=== PATIENT | female | born 1985 ===

== ENCOUNTER 2017-03-31 17:22 | Emergency (ER) | payer OTHER | END 2017-03-31 19:45 | disposition home or self-care (01) | LOC: H.EROB2 17:22 → H.EROB 17:44 → H.EROB2 19:45 | DX: O47.1 False labor at or after 37 completed weeks of gestation (principal); Z3A.38 38 weeks gestation of pregnancy ==

== ENCOUNTER 2017-04-01 01:59 | Inpatient (IN) | payer OTHER ==
[2017-04-01] MEDS ORDERED: Lactated Ringer's 1,000 ML IV SCH (02:40)
[2017-04-01] MEDS: Lactated Ringer's 1,000 ML IV SCH ×2 (03:31→04:30)
[2017-04-01 03:33] VITALS: BMI 35.6
[2017-04-01 03:59] LABS: BASO % 0.2 % (0.0-2.0); EOS % 0.1 % (0.0-4.0); HEMATOCRIT 36.4 % (34.0-47.0); LYMPH % 22.7 % (20.0-40.0); MEAN CELL VOLUME 87.1 fl (81.0-99.0); MEAN CORPUSCULAR HEMOGLOBIN 29.6 pg (27.0-31.0); MEAN PLATELET VOLUME 9.7 fl (7.2-11.7); MONO # 0.5 K/uL (0.0-0.8); MONO % 6.1 % (0.0-10.0); NEUT # 6.3 K/uL (1.8-7.0); NEUT % 70.9 % (50.0-75.0); NRBC % 0.1 % (0.0-0.0); RED CELL DISTRIBUTION WIDTH 14.2 % (11.5-14.5); WHITE BLOOD COUNT 8.9 K/uL (4.8-10.8)
[2017-04-01] MEDS ORDERED: Ampicillin 2 GM in Sodium Chloride 0.9% 100 ML IVPB ONE (04:00)
[2017-04-01] MEDS ORDERED: Fentanyl/Bupivacaine HCl 250 ML EPI ONE (04:21)
[2017-04-01] MEDS ORDERED: Bupivacaine HCl 0.25% PF (10 ml) Inj ONE (04:22)
[2017-04-01] MEDS: AMPicillin 1 GM in Sodium Chloride 0.9% 100 ML IVPB SCH ×2 (07:40→11:54)
[2017-04-01 07:46] VITALS: TEMP 98
--- NOTE | 2017-04-01 09:25 | OBADHP ---
Datetime: 04/01/2017 09:20 Admit Comment, IP Provider: LAte GBS neg but early pos so will start on antibiotics Since pt very un confortable and had fast 1st baby delivery sid admit Extremities - PN: Normal Abdomen - PN: Abnormal Back - PN: Normal Breast - PN: Normal Heart - PN: Normal Thyroid - PN: Normal Neurologic - PN: Normal HEENT - PN: Normal General - PN: Normal Presentation-Admit: ceph FHR - Baseline A Provider: 140 Membranes, Provider: Intact Contraction Comments Provider: 2-4 min Comments, ACOG Physical Exam: abd gravid fundus NT Ext no calf tenderness Gestation - Est Wks by US: 38.0 Pool Provider: Negative IP Hx Assessment: The History has been Reviewed and is Current Vital Signs Provider: Reviewed IP Chief Complaint: Uterine contractions NICHD Variability Prov Fetus A: Moderate 6-25bpm NICHD Decel Fetus A IP Provider: None Dilatation, Provider: 2-3 Effacement, Provider: 90 Station, Provider: -2 Genitourinary Exam: Normal DTRs - PN: Normal EGA AdmitDate IP: 38.5 IP Adm Impression: Term, intrauterine ; Active labor IP Admit Plan: Admit to unit; Initiate labor protocol Datetime: 03/31/2017 18:30 Pelvic Type - PN: Adequate Lungs - PN: Normal NICHD Accel Fetus A IP Provider: [id number] FHR Category Provider Fetus A: Category I
[2017-04-01] MEDS ORDERED: Oxytocin 30 units/LR 500ML 30 U/500 ML BAG IV ONE (11:34)
[2017-04-01] MEDS ORDERED: Oxycodone/Acetaminophen 5/325 mg Tab PO PRN ×2 (15:58→18:17)
--- NOTE | 2017-04-01 15:59 | OBDS ---
DELIVERY PERSONNEL Delivery Doctor: Sofia Canela MD Shopper: Jyoti Melendez RN MATERNAL INFORMATION Delivery Anesthesia: Epidural Medications in Delivery: pitocin Estimated Blood Loss (ml): 250cc Maternal Complications: None Provider Comments: Delivered a living baby boy appears LGA but terrm, criied spontanously, 9/9 , AF clear Placenta delivered complete and intact Episiotomy repaired as above, no complications Uter us contracted well, rectal done no defects. Tolerated procedure well LABOR SUMMARY EDC: 04/10/2017 00:00 No. Babies in Womb: 1 Attempted: No Labor Anesthesia: Epidural LABOR INFORMATION Reason for Induction: Not Applicable Onset of Labor: 04/01/2017 02:00 Complete Dilatation: 04/01/2017 14:10 Oxytocin: Augmentation Group B Beta Strep: Negative (Annotations: History of positive result early in , currently negative ) Antibiotics # of Doses: 3 Antibiotics Time of Last Dose: 1240 Steroids Given: None Reason Steroids Not Administered: Not Applicable MEMBRANES Membranes Rupture Method: Artificial (Annotations: Dr Canela) Rupture of Membranes: 04/01/2017 09:17 Length of Rupture (hrs): 6.25 Amniotic Fluid Color: Clear Amniotic Fluid Amount: Small Amniotic Fluid Odor: Normal STAGES OF LABOR Stage 1 hrs: 12 Stage 1 min: 10 Stage 2 hrs: 1 Stage 2 min: 22 Stage 3 hrs: 0 Stage 3 min: 5 Total Time in Labor hrs: 13 Total Time in Labor min: 37 VAGINAL DELIVERY Episiotomy: Median Laceration Extension: Second Degree Laceration Type: Perineal Laceration Repair: Yes Laceration Repair Note: episiotomy repaired with 2-0 chromic suture interupted and continuos without any complications No vaginal, cervical or perineal tears or laceratioons noted Initial Vag Sponge Count: 5 Final Vag Sponge Count: 5 Initial Vag Sharps Count: 1 Final Vag Sharps Count: 1 Sponge Count Correct: Yes Sharps Count Correct: Yes Count Comment: counts correcct CSECTION DELIVERY Primary Indication: N/A Secondary Indication: N/A CSection Urgency: N/A Labor: N/A CSection Incision: N/A BABY A INFORMATION Delivery Date/Time: 04/01/2017 15:32 Method of Delivery: Vaginal Born in Route : No : N/A Forceps: N/A Vacuum Extraction: N/A Shoulder Dystocia : No SHOULDER DYSTOCIA BABY A Delivery Date/Time: 04/01/2017 15:32 PRESENTATION/POSITION BABY A Presentation: Cephalic Cephalic Presentation: Vertex Breech Presentation: N/A PLACENTA INFORMATION BABY A Placenta Delivery Time : 04/01/2017 15:37 Placenta Method of Delivery: Spontaneous Placenta Status: Delivered SCORES BABY A Heart Rate 1 min: >100 bpm Resp Effort 1 min: Good Cry Reflex Irritability 1 min: Cough or Sneeze or Pulls Away Muscle Tone 1 min: Active Motion Color 1 min: Body [place], Extremities Blue Resuscitation Effort 1 min: N/A SCORE 1 MIN: 9 Heart Rate 5 min: >100 bpm Resp Effort 5 min: Good Cry Reflex Irritability 5 min: Cough or Sneeze or Pulls Away Muscle Tone 5 min: Active Motion Color 5 min: Body [place], Extremities Blue Resuscitation Effort 5 min: N/A SCORE 5 MIN: 9 Resuscitation Effort 10 min: N/A INFANT INFORMATION BABY A Gestational Age at Delivery: 38+5 Gestational Status: Term Outcome : Liveborn Condition : Stable Infant Sex: Male IDENTIFICATION/MEDS BABY A ID Band Number: [id number] ID Band Location: Left Leg; Left Arm WEIGHT/LENGTH BABY A Birthweight (gms): 3950 Weight (lb): 8 Weight (oz): 11 CORD INFORMATION BABY A No. Cord Vessels: 3 Nuchal Cord : N/A Cord Blood Taken: Yes Infant Suction: Mouth ASSESSMENT BABY A Infant Complications: None Physical Findings at Delivery: Within Normal Limits Respirations: Appears Normal Icing Machine Operator/ALS Called : No Infant Care By: Maribel Garcia rn Transferred To: Remains with Mother
[2017-04-02 06:46] LABS: HEMATOCRIT 29.7 % (34.0-47.0); MEAN CELL VOLUME 88.5 fl (81.0-99.0); MEAN CORPUSCULAR HEMOGLOBIN 28.8 pg (27.0-31.0); MEAN CORPUSCULAR HGB CONC 32.6 g/dL (33.0-37.0); RED CELL DISTRIBUTION WIDTH 14.1 % (11.5-14.5); WHITE BLOOD COUNT 13.4 K/uL (4.8-10.8)
[2017-04-02] MEDS: Benzocaine/Menthol SPRAY TOP PRN (09:43)
--- NOTE | 2017-04-02 10:33 | OBPPN ---
Datetime: 04/02/2017 10:29 PP Pain Prov: Within normal limits PP Nausea Prov: Denies PP Flatus Prov: Yes PP BM Prov: No PP Breasts Prov: Normal PP Heart Prov: Normal PP Lungs Prov: Normal PP Abdomen/Uterus Prov: Normal PP Lochia Prov: Normal PP Vulva/Perineum Prov: Normal PP CVA Tenderness Prov: Normal PP Extremities Prov: Normal PP Progress Prov: Normal PP Impression Prov: Normal progression PP Plan Prov: Continue present management PP Progress Note Prov: stable ppd1 continue present care,oob with assistance,may shower IP PP Procedures: None Vital Signs Provider PP: Reviewed; Within Normal Limits
[2017-04-03] MEDS: Benzocaine/Menthol SPRAY TOP PRN (08:27)
--- NOTE | 2017-04-03 10:22 | OBPPN ---
Datetime: 04/03/2017 10:17 PP Pain Prov: Within normal limits PP Pain Prov comment: no SOB, chest pain or leg pain PP Nausea Prov: Denies PP Flatus Prov: Yes PP BM Prov: Yes PP Breasts Prov: Normal PP Lungs Prov: Normal PP Abdomen/Uterus Prov: Abnormal PP Lochia Prov: Normal PP Vulva/Perineum Prov: Abnormal PP CVA Tenderness Prov: Normal PP Extremities Prov: Normal PP C/S Incision Prov: Not Applicable PP Progress Prov: Normal PP Comments Phys Exam Prov: breast not engorged, Nt; abd soft not distended fundus firm below the um b NT; Perineum repaired Ext no calf tenderness or edema. PP Impression Prov: Normal progression PP Plan Prov: Discharge PP Progress Note Prov: D/c home with instructions IP PP Procedures: None Vital Signs Provider PP: Reviewed
--- NOTE | 2017-04-03 10:22 | OBDCSUM ---
Datetime: 04/03/2017 10:20 Discharged to, Provider: Home Follow up at, Provider: Dr Canela Disch Instr Activity: Bedrest; May be up to bathroom; May be up for meals; May Shower Disch Instr Diet: Regular Discharge Instructions, Provider: Routine instructions given Discharge Diagnosis, Provider: Term Delivered Discharge Time: 04/03/2017 10:20 Follow up in weeks, Provider: 4-6 wks Disch Referrals: None Contraception discussed, Prov: Yes Disch Activity Restrictions: No exercising; No lifting; No driving; Minimize walking; Minimize stair -climbing; No sexual activity; Nothing in vagina - [place], tampons, douche Discharge Comment, Provider: continue PNC vit and iron Instructions given Contraception after Delivery: Undecided
[2017-04-03 15:38] VITALS: BP 116/70; PULSE 78; RESP 19; O2SAT 99
== END 2017-04-03 11:25 | disposition home or self-care (01) | DRG 373 ==
LOC: H.EROB2 01:59 → H.L&D 02:40 → H.OB/GYN 20:00
PROVIDERS: ADMIT Specialist; ATTEND Specialist
PROC: 0W8NXZZ Division of Female Perineum, External Approach (ICD-10-PCS; principal; 2017-04-01)
PROC: 10D07Z8 Extraction of Products of Conception, Other, Via Natural or Artificial Opening (ICD-10-PCS; 2017-04-01)
PROC: 4A1HXCZ Monitoring of Products of Conception, Cardiac Rate, External Approach (ICD-10-PCS; 2017-04-01)
DX: O36.63X0 Maternal care for excessive fetal growth, third trimester, not applicable or unspecified (principal); O70.1 Second degree perineal laceration during delivery; Z37.0 Single live birth; Z3A.38 38 weeks gestation of pregnancy

== ENCOUNTER 2017-06-24 06:35 | Day surgery (SDC) | payer OTHER ==
[2017-06-21 16:07] VITALS: BMI 32.0
[2017-06-24 07:14] VITALS: RESP 18
[2017-06-24] MEDS ORDERED: Lactated Ringer's 1,000 ML IV ONE (07:15)
[2017-06-24] MEDS ORDERED: Propofol 10 mg/ml Inj (20 ML) ONE ×2 (07:31→08:27)
[2017-06-24] MEDS ORDERED: Midazolam 2 MG/2 ML VIAL ONE (07:32)
[2017-06-24] MEDS ORDERED: ePHEDrine 50 mg/ml Inj ONE (07:32)
[2017-06-24] MEDS ORDERED: Rocuronium 10 mg/ml (5 ml) ONE (07:32)
[2017-06-24] MEDS ORDERED: Succinylcholine 200 mg/10 ml Inj IV ONE (07:33)
[2017-06-24] MEDS ORDERED: Lidocaine 4% (Laryng-O-Jet) Kit MM ONE (07:33)
[2017-06-24] MEDS ORDERED: Dexamethasone 4 mg/1 ml ONE (07:34)
--- NOTE | 2017-06-24 07:39 | CP.SDSHP ---
Same Day Surgery H & P - History Proposed Procedure: laparoscopic bilateral tubal sterilization - Previous Medical/Surgical History Previous Surgical History: TOP - Allergies Allergies: Allergies No Known Allergies Allergy (Verified 06/24/17 06:54) - Physical Exam Vital Signs: Vital Signs 06/24/17 07:13 Temperature 98 F Pulse Rate 65 Respiratory 18 Rate Blood Pressure 108/64 O2 Sat by Pulse 97 Oximetry Mental Status: Alert & Oriented x3 Neuro: WNL Heart: WNL Lungs: WNL GI: WNL - {Optional Preform as Required} Breast: WNL Abdomen: WNL Integument: WNL SHOP FITTER: WNL - Impression Impression: multiparity and voluntary sterilization - Date & Time Date: 06/24/17 Time: 07:39 Short Stay Discharge - Short Stay Discharge Admitting Diagnosis/Reason for Visit: Z64.1 Z30.2 Disposition: HOME/ ROUTINE Referrals: Shawna Hoffman MD [Primary Care Provider] -
[2017-06-24] MEDS ORDERED: ceFAZolin IV 1 gm in Dextrose 2 GM/100 ML BAG IVPB ONE (08:08)
[2017-06-24] MEDS ORDERED: Neostigmine Methylsulfate 2 MG/2 ML ML IV ONE (08:35)
[2017-06-24] MEDS ORDERED: HYDROmorphone 0.5 mg/0.5 ml ISec IVP PRN (08:55)
[2017-06-24] MEDS: HYDROmorphone 0.5 mg/0.5 ml ISec ONE ×3 (08:55→09:19)
[2017-06-24] MEDS ORDERED: Lactated Ringer's 1,000 ML IV SCH (09:00)
[2017-06-24] MEDS ORDERED: HYDROmorphone 0.5 mg/0.5 ml ISec ONE (09:07)
[2017-06-24] MEDS ORDERED: Oxycodone/Acetaminophen 5/325 mg Tab PO PRN (09:07)
[2017-06-24 12:02] VITALS: BP 112/76; PULSE 75; TEMP 9.6; O2SAT 98
--- NOTE | 2017-06-24 13:42 | CP.SDSHP ---
Same Day Surgery H & P - Allergies Allergies: Allergies No Known Allergies Allergy (Verified 06/24/17 06:54) - Physical Exam Vital Signs: Vital Signs 06/24/17 06/24/17 06/24/17 07:13 08:51 09:05 Temperature 98 F 96.4 F L 96.7 F L Pulse Rate 65 73 76 Respiratory 18 18 18 Rate Blood Pressure 108/64 109/59 L 107/66 O2 Sat by Pulse 97 100 100 Oximetry 06/24/17 06/24/17 06/24/17 09:20 09:35 09:50 Temperature 96.9 F L 97.2 F L Pulse Rate 70 68 72 Respiratory 20 20 20 Rate Blood Pressure 112/66 114/69 115/68 O2 Sat by Pulse 100 98 98 Oximetry 06/24/17 06/24/17 06/24/17 10:20 10:40 10:53 Temperature 97.6 F 97.5 F L Pulse Rate 75 77 70 Respiratory 20 20 18 Rate Blood Pressure 113/82 117/71 115/64 O2 Sat by Pulse 98 97 97 Oximetry 06/24/17 06/24/17 10:56 11:50 Temperature 9.6 F L Pulse Rate 75 Respiratory 18 Rate Blood Pressure 112/76 O2 Sat by Pulse 97 98 Oximetry Short Stay Discharge - Short Stay Discharge Admitting Diagnosis/Reason for Visit: Z64.1 Z30.2 Referrals: Shawna Hoffman MD [Primary Care Provider] - Follow-up: 2 wks in office Additional Instructions (Diet, Activity): pelvic and bed rest Rx for Percocet given. Progress Note/Discharge Note with Instructions: Recovered well and discussed procedure and findings with pt. Will D/C home and folllow up in office Instructions given
--- NOTE | 2017-06-25 23:44 | OP ---
PROCEDURE DATE: 06/24/2017 PREOPERATIVE DIAGNOSIS: Multiparity and voluntary sterilization. POSTOPERATIVE DIAGNOSIS: Multiparity and voluntary sterilization. PROCEDURE PERFORMED: Laparoscopic bilateral tubal sterilization using electrocoagulation. SURGEON: Dirk Canela MD TYPE OF ANESTHESIA: General endotracheal. ANESTHESIA ADMINISTERED BY: Shannon Lara MD ESTIMATED BLOOD LOSS: 75 mL. DRAINS USED: None. REPLACEMENTS USED: None. FINDINGS: 1. Uterus is anteverted, mobile, smooth to palpation. 2. Cervix closed, long, posterior, mobile. No gross lesion to visualization. 3. Both tubes and ovaries appear grossly within normal limits to inspection bilaterally. 4. Bilateral tubal sterilization performed using electrocoagulation without any complication. DESCRIPTION OF PROCEDURE: The patient was taken to the operating room and placed on the operating table in a supine position. Following induction of general endotracheal anesthesia, the patient was then re-placed in a dorsal lithotomy position. Perineal, abdominal, and genital areas were draped and prepped in the usual sterile manner. Following this, we then proceeded to put a sterile catheter into the bladder. Clear urine was then evacuated from the bladder. The patient was then examined under anesthesia with some of the above findings. A heavy-weighted speculum was then placed in the posterior wall of the vagina, thus exposing the cervix. The anterior lip of the cervix was then grasped using a single-tooth tenaculum and retracted superiorly. At this time, the endocervical canal was then dilated using Hanks dilators in an increasing size manner. Following this, a HUMI cannula was then inserted into the endometrial canal in order to manipulate the cervix. The single-tooth tenaculum was then removed, no bleeding noted. Heavy-weighted speculum was removed and attention was then given to the abdomen. At the umbilicus, a Veress needle was then introduced into the abdomen and about 5 liters of carbon dioxide was then introduced into the abdomen, thus creating a pneumoperitoneum. Following this, we then proceeded to remove the Veress needle and a 1-cm incision was then made at the umbilicus. Through this, a 10-mm trocar was then introduced into the abdomen under direct visualization. Through this, a laparoscope was then introduced. Visualization of the area underneath the insertion revealed no signs of trauma or bleeding. At this time, a 5-mm trocar was then introduced suprapubically under direct visualization. Through this, a laparoscopic Kleppinger forceps was then introduced. Visualization of the uterus appeared to be anteverted, smooth, and normal size. Both tubes and ovaries appeared grossly within normal limits to inspection bilaterally, and at this time, using the Kleppinger forceps, the right fallopian tube was followed to its fimbriated end and retracted superiorly and grasped at the ampullary region and away from adjacent structures. Under direct visualization, electrocoagulation was then performed of about 3-cm section of the tube. The same procedure was performed on the contralateral side without any complications. At this time, all operative areas were checked and hemostatically secured. The lumen appeared smooth to visualization. Air was then allowed partially to escape from the abdomen, thus evacuating partially the pneumoperitoneum. All operative areas were checked and hemostatically secured and the 5-mm trocar was then removed under direct visualization. No bleeding noted, and at this time, the 10-mm trocar and laparoscope were then removed after evacuating some more air from the abdomen under direct visualization. A 0-Vicryl suture was then placed at the fascia at the umbilical incision. Both incisions were then closed using a 4-0 Monocryl and Dermabond. The HUMI cannula was then removed, no bleeding noted. The patient tolerated the procedure well. There were no complications. She was transferred to the recovery room in satisfactory condition. Both instrument and needle count were correct x3. Dirk Canela MD
== END 2017-06-24 12:31 | disposition home or self-care (01) ==
LOC: H.OPSURG 06:35
PROVIDERS: ATTEND Specialist
DX: Z30.2 Encounter for sterilization (principal); Z64.1 Problems related to multiparity
CPT/HCPCS: 58670; J0330; J0690; J1100; J1170; J2001; J2250; J2405; J2704; J2710; J3010; J7120

== ENCOUNTER 2018-08-17 16:25 | Emergency (ER) | payer OTHER ==
[2018-08-17 16:25] VITALS: BMI 32.0
[2018-08-17 16:33] VITALS: RESP 18
--- NOTE | 2018-08-17 16:54 | ED PDOC ---
HPI: Hypertension/Hypotension Time Seen by Provider: 08/17/18 16:38 Chief Complaint (Nursing): Palpitations Chief Complaint (Provider): Palpitations History Per: Patient History/Exam Limitations: no limitations Onset/Duration Of Symptoms: Hrs (today) Current Symptoms Are (Timing): Still Present Additional Complaint(s): Latesha Chang is a 32 year old female, with a past medical history of hyperlipidemia, who presents to the emergency department complaining of intermi ttent palpitations associated with left shoulder and left facial numbness onset x1 hour prior to arrival. Patient states she was sitting down at work when symptoms began. Patient also reports symptoms are occasionally associated with difficulty breathing. Patient reports similar symptoms x1 month ago, she was seen by her PMD who did blood work on Tuesday along with an echo yesterday. Patient denies any fever, chills, cough, nausea, vomit, abdominal pain, weakness or other medical complaints. PMD: Shawna Hoffman Past Medical History Reviewed: Historical Data, Nursing Documentation, Vital Signs Vital Signs: Last Vital Signs Temp 97.8 F 08/17/18 16:28 Pulse 88 08/17/18 16:28 Resp 18 08/17/18 16:28 BP 145/89 08/17/18 16:28 Pulse Ox 99 08/17/18 16:28 - Medical History PMH: Hyperlipidemia Denies: Depression, Diabetes, HTN, Chronic Kidney Disease - Surgical History Surgical History: Endoscopy - Family History Family History: States: Unknown Family Hx - Social History Current smoker - smoking cessation education provided: No Alcohol: None Drugs: Denies - Home Medications Home Medications: Ambulatory Orders Medication Instructions Recorded oxyCODONE/Acetaminophen [Percocet 5 - 325 mg PO Q4 PRN 06/24/17 5/325 mg Tab] - Allergies Allergies/Adverse Reactions: Allergies Allergy/AdvReac Type Severity Reaction Status Date / Time No Known Allergies Allergy Verified 06/24/17 06:54 Review of Systems ROS Statement: Except As Marked, All Systems Reviewed And Found Negative Constitutional: Negative for: Fever, Chills Cardiovascular: Positive for: Palpitations Respiratory: Positive for: Shortness of Breath. Negative for: Cough Gastrointestinal: Negative for: Nausea, Vomiting, Abdominal Pain Neurological: Positive for: Numbness (left facial and shoulder). Negative for: Weakness Physical Exam - Reviewed Nursing Documentation Reviewed: Yes Vital Signs Reviewed: Yes - Physical Exam Appears: Positive for: Well, No Acute Distress Head Exam: Positive for: ATRAUMATIC, NORMAL INSPECTION, NORMOCEPHALIC Skin: Positive for: Normal Color, Warm, Dry Eye Exam: Positive for: Normal appearance, EOMI, PERRL Neck: Positive for: Normal, Painless ROM, Supple Cardiovascular/Chest: Positive for: Regular Rate, Rhythm. Negative for: Murmur Respiratory: Positive for: Normal Breath Sounds. Negative for: Respiratory Distress Gastrointestinal/Abdominal: Positive for: Normal Exam, Soft. Negative for: Tenderness, Guarding, Rebound Back: Positive for: Normal Inspection. Negative for: L CVA Tenderness, R CVA Tenderness, Vertebral Tenderness Extremity: Positive for: Normal ROM (upper and lower extremities). Negative for: Deformity, Swelling Neurologic/Psych: Positive for: Alert, Oriented. Negative for: Motor/Sensory D eficits - Laboratory Results Result Diagrams: 08/17/18 17:30 08/17/18 17:30 - ECG O2 Sat by Pulse Oximetry: 99 (RA) Pulse Ox Interpretation: Normal Medical Decision Making Medical Decision Making: Time: 16:38 Initial Impression: Work up for hyperthyroidism, cardiac etiology and dehydration vs anxiety. Patient is well appearing and in no acute distress Initial Plan: --EKG --Reevaluation 19:25 Labs are unremarkable. EKG is NSR. Patient is symptom free at this time. Heart score 0. Patient is to be discharged. will follow up with PMD in 1 week and return parameters were discussed. Scribe Attestation: Documented by John George and Harsh Iyer, acting as a scribe for Ethel Cornell MD Provider Scribe Attestation: All medical record entries made by the Scribe were at my direction and personally dictated by me. I have reviewed the chart and agree that the record accurately reflects my personal performance of the history, physical exam, medical decision making, and the department course for this patient. I have also personally directed, reviewed, and agree with the discharge instructions and disposition. Disposition - Clinical Impression Clinical Impression: Palpitations, Chest pain - Disposition Disposition Time: 19:25 Condition: IMPROVED Additional Instructions: Follow up with primary medical doctor. Return to the emergency department if symptoms worsen or if new symptoms develop. Instructions: Chest Pain That Is Not Caused by the Heart (DC), Palpitations (DC) Forms: [employer] (Maori) Print Language: IRISH
[2018-08-17 17:46] LABS: BASO # 0.1 K/uL (0.0-0.2); BASO % 0.9 % (0.0-2.0); EOS # 0.1 K/uL (0.0-0.7); EOS % 0.8 % (0.0-4.0); HEMOGLOBIN 13.1 g/dL (12.0-16.0); LYMPH # 2.7 K/uL (1.0-4.3); LYMPH % 40.8 % (20.0-40.0); MEAN CELL VOLUME 87.9 fl (81.0-99.0); MEAN CORPUSCULAR HEMOGLOBIN 29.4 pg (27.0-31.0); MEAN CORPUSCULAR HGB CONC 33.4 g/dL (33.0-37.0); MONO # 0.4 K/uL (0.0-0.8); MONO % 5.3 % (0.0-10.0); NEUT # 3.5 K/uL (1.8-7.0); NEUT % 52.2 % (50.0-75.0); NRBC % 0.1 % (0.0-0.0); RBC 4.46 Mil/uL (3.80-5.20); RED CELL DISTRIBUTION WIDTH 13.4 % (11.5-14.5); WHITE BLOOD COUNT 6.7 K/uL (4.8-10.8)
[2018-08-17 17:55] LABS: VENOUS BLOOD GAS BASE EXCESS 0.8 mmol/L (0.0-2.0); VENOUS BLOOD GAS PCO2 49 mmHg (40-60); VENOUS BLOOD GAS PO2 23 mm/Hg (30-55); VENOUS BLOOD PH 7.35 (7.32-7.43)
[2018-08-17] MEDS ORDERED: Sodium Chloride 0.9% 1,000 ML IV STA ×2 (18:02→18:29)
--- NOTE | 2018-08-17 18:14 | RAD ---
Date of service: 08/17/2018 HISTORY: cough COMPARISON: Chest radiograph dated 05/09/2015. TECHNIQUE: Chest PA and lateral FINDINGS: LUNGS: No active pulmonary disease. PLEURA: No significant pleural effusion identified. No pneumothorax apparent. CARDIOVASCULAR: No aortic atherosclerotic calcification present. Normal cardiac size. No pulmonary vascular congestion. OSSEOUS STRUCTURES: No significant abnormalities. VISUALIZED UPPER ABDOMEN: Normal. OTHER FINDINGS: None. IMPRESSION: No active disease.
[2018-08-17 18:22] LABS: ALB/GLOB RATIO 1.3 (1.0-2.1); ALBUMIN 4.8 g/dL (3.5-5.0); ALT/SGPT 21 U/L (9-52); AST/SGOT 27 U/L (14-36); B-TYPE NATRIURETIC PEPTIDE 15.9 pg/ml (0-450); BLOOD UREA NITROGEN 8 mg/dl (7-17); CALCIUM 9.6 mg/dL (8.4-10.2); GFR NON-AFRICAN AMERICAN > 60
[2018-08-17] MEDS ORDERED: Potassium Chloride 20 mEq ER Tab PO STA (18:37)
[2018-08-17] MEDS ORDERED: Potassium Chloride 20 mEq ER Tab PO ONE (19:16)
[2018-08-17 19:48] VITALS: BP 138/82; PULSE 80; TEMP 98.2; O2SAT 100
--- NOTE | 2018-08-18 07:22 | CARD ---
APPROVED REPORT Date of service: 08/17/2018 EKG Measurement Heart [id number] <Conclusion> Normal sinus rhythm Normal ECG
== END 2018-08-17 19:48 | disposition home or self-care (01) ==
LOC: H.ER 16:25
DX: R00.2 Palpitations (principal); R07.89 Other chest pain; E78.5 Hyperlipidemia, unspecified; I10 Essential (primary) hypertension
CPT/HCPCS: 71046; 80053; 81025; 82803; 83880; 84484; 85025; 93005; 99285; J7030